=== PATIENT | female | born 1990 | race African-American/Black ===

== ENCOUNTER 2016-04-27 10:42 | Emergency (ER) | payer MEDICAID ==
[2016-04-27] MEDS ORDERED: NS 1,000 ML IV ONE (11:41)
[2016-04-27] MEDS ORDERED: ONDANSETRON 4 MG/2 ML VIAL IVP ONE (11:41)
[2016-04-27] MEDS ORDERED: fentaNYL 100 MCG/2 ML INJ IVP ONE (11:41)
--- NOTE | 2016-04-27 11:41 | EDPHY ---
H & P Smoking Status: Never smoked Time Seen by Provider: 04/27/16 11:04 HPI/ROS: CHIEF COMPLAINT: Abdominal pain, flank pain, urinary frequency HISTORY OF PRESENT ILLNESS: 25-year-old female presents to the emergency department by private vehicle with flank pain and abdominal pain. The patient states around 7:00 p.m. last night she developed some low back discomfort. She developed right lower quadrant abdominal pain last evening as well. She feels that it is sharp and colicky in nature. She has a history of 3 previous kidney stones and she states that this feels very similar although she does not typically have such severe bilateral flank pain with this. No known fevers or chills. She feels extremely nauseous however no vomiting. She has urinary frequency and urgency however no dysuria or hematuria. No diarrhea. Last menstrual period was about 2 months ago. She is on extended control. She is not sexually active and denies . REVIEW OF SYSTEMS: Constitutional: No fever, no chills. Eyes: No double or blurry vision. ENT: No sore throat. Respiratory: No cough, no shortness of breath. Cardiac: No chest pain. Gastrointestinal: Abdominal pain as above. Nausea. No vomiting or diarrhea. Genitourinary: No dysuria. Musculoskeletal: Bilateral flank pain as above. No neck pain. Skin: No rashes. Neurological: No headache. (PrincessGinny miranda) Past Medical/Surgical History: Kidney stones x3 in the last 4 years. Able to pass on her own. (PrincessruthGinny Tavares ) Social History: Single. Works as counselor at [employer] (PrincessruthGinny M) Physical Exam: General Appearance: Alert, no distress. Afebrile and in no apparent distress. Initial blood pressure 151/84 with initial heart rate of 134. Eyes: Pupils equal and round. Extraocular motions are all intact. ENT: Mouth: Mucous membranes moist. Respiratory: No wheezing, rhonchi, or rales, lungs are clear to auscultation. Cardiovascular: Regular rate and rhythm. Heart rate 90s and regular upon my examination. Gastrointestinal: Abdomen is soft and nontender, no masses, no rebound or guarding, bowel sounds normal. Positive CVA tenderness on the right. None on the left. Neurological: Alert and oriented x 3, cranial nerves II through XII grossly intact Skin: Warm and dry, no rashes. Musculoskeletal: Nontender to palpate along the cervical, thoracic or lumbar spine. Neck is supple. Extremities: Full range of motion and no peripheral edema. Psychiatric: Patient is oriented X 3, there is no agitation. (Ginny Mcmanus) Constitutional: Initial Vital Signs Temperature (C) 37 C 04/27/16 10:43 Heart Rate 134 H 04/27/16 10:43 Respiratory Rate 16 04/27/16 10:43 Blood Pressure 151/84 H 04/27/16 10:43 O2 Sat (%) 97 04/27/16 10:43 O2 Delivery Mode Room Air Allergies/Adverse Reactions: acetaminophen [From Percocet] Allergy (Verified 12/18/15 10:57) oxycodone Allergy (Unverified 02/29/16 16:59) oxycodone HCl [From Percocet] Allergy (Verified 12/18/15 10:57) Home Medications: Medication Instructions Recorded Hydroxyzine HCl 12/20/14 Latuda 12/20/14 Bcp 02/29/16 Beclomethasone Qvar 40 [Qvar 40 2 puffs IH DAILY #1 mdi 02/29/16 (*)] Hydroxyzine HCl 02/29/16 Saffers 02/29/16 predniSONE 40 mg PO DAILY #8 tab 02/29/16 Medical Decision Making - Diagnostics Imaging: CT imaging of the abdomen and pelvis with IV contrast reveals normal appearing appendix. No evidence of hydronephrosis or ureteral stone. There is a small, 2 mm stone in the left kidney. Evidence of constipation noted. This was reported to me by Dr. Dobson. (Ginny Mcmanus) ED Course/Re-evaluation: 25-year-old female presents to the emergency department by private vehicle complaining of low back pain, abdominal pain and urinary frequency. Laboratory studies were unremarkable. I recommended CT imaging of the abdomen and pelvis since I was concerned about possible acute appendicitis. The pros and cons were discussed with the patient including radiation exposure and the patient agrees with CT scan. CT imaging of the abdomen and pelvis revealed normal appendix. No evidence of hydronephrosis or acute ureteral stone. The patient was initially given IV fentanyl per pain and then she was given 30 mg of IV Toradol. She was also given IV Zofran and her nausea had completely resolved. The patient requested to be discharged home. She declined any further pain medication. I encouraged her to return if she developed recurring abdominal pain, vomiting, fever, or if she felt worse in any way. She was comfortable with this plan. (Ginny Mcmanus) Differential Diagnosis: Including but not limited to urinary tract infection, pyelonephritis, acute appendicitis, musculoskeletal pain, kidney stone (Ginny Mcmanus) Other Provider: The patient was evaluated and managed by the physician clinical research assistant. I have reviewed this chart and I agree with the findings and plan of care as documented , as indicated by my signature. I am the secondary supervising physician. ( Maty Teixeira) - Data Points Laboratory Results: Laboratory Results 04/27/16 11:00 04/27/16 11:00 Medications Given: Discontinued Medications Fentanyl (Sublimaze) 50 mcg IVP EDNOW ONE Stop: 04/27/16 11:42 Last Admin: 04/27/16 11:51 Dose: 50 mcg Sodium Chloride (Ns) 1,000 mls @ 0 mls/hr IV ONCE ONE PRN Reason: Wide Open Stop: 04/27/16 11:42 Last Admin: 04/27/16 11:51 Dose: 1,000 mls Ketorolac Tromethamine (Toradol) 30 mg IVP EDNOW ONE Stop: 04/27/16 14:04 Last Admin: 04/27/16 14:15 Dose: 30 mg Ondansetron HCl (Zofran) 4 mg IVP EDNOW ONE Stop: 04/27/16 11:42 Last Admin: 04/27/16 11:52 Dose: 4 mg Departure - Departure Disposition: Home, Routine, Self-Care Clinical Impression: Abdominal pain, Urinary frequency, Flank pain Condition: Good Instructions: Flank Pain (ED), Abdominal Pain (ED) Additional Instructions: Abdominal Pain: Return to the Emergency Department immediately for increasing pain, fever, vomiting, or if not completely better in 8-12 hours. Referrals: Elyssa Huntley MD [Medical Doctor] - 1 day, if not improved (Primary care provider transportation security screener)
[2016-04-27 11:42] LABS: % IMMATURE GRANULYOCYTES 0.2 % (0.0-1.1); ABSOLUTE IMMATURE GRANULOCYTES 0.01 10^3/uL (0.00-0.10); ADD DIFF? NO; ADD MORPH? NO; ADD SCAN? NO; ATYPICAL LYMPHOCYTE FLAG 20 (0-99); FRAGMENT RBC FLAG 0 (0-99); HEMATOCRIT 42.1 % (38.0-47.0); HEMOGLOBIN 14.3 g/dL (12.6-16.3); LEFT SHIFT FLG 0 (0-99); LIPEMIA HEMOLYSIS FLAG 90 (0-99); MEAN CELL HEMOGLOBIN 29.8 pg (27.9-34.1); MEAN CELL VOLUME 87.7 fL (81.5-99.8); PLATELET CLUMPS FLAG 0 (0-99); PLATELET COUNT 296 10^3/uL (150-400); RED CELL DISTRIBUTION WIDTH 12.1 % (11.5-15.2)
[2016-04-27 11:53] LABS: COLOR PALE YELLOW; LEUKOCYTE ESTERASE,URINE NEGATIVE (NEGATIVE); NITRITE,URINE NEGATIVE (NEGATIVE)
[2016-04-27 12:02] LABS: ANION GAP 15 mEq/L (8-16); CALCIUM 9.4 mg/dL (8.5-10.4); CARBON DIOXIDE 23 mEq/l (22-31); CHLORIDE 107 mEq/L (97-110); CREATININE 0.6 mg/dL (0.6-1.0); GLOMERULAR FILTRATION RATE > 60; GLUCOSE 89 mg/dL (70-100); POTASSIUM 3.6 mEq/L (3.5-5.2); SODIUM 145 mEq/L (134-144)
[2016-04-27 12:04] LABS: BACTERIA TRACE /hpf (NONE SEEN); MUCUS TRACE /lpf (NONE-1+)
[2016-04-27] MEDS ORDERED: IOPAMIDOL (ISOVUE-300) 50 ML VIAL IV ONE (13:30)
--- NOTE | 2016-04-27 14:00 | CT ---
CT Scan of the Abdomen and Pelvis (With Contrast) 1340 hours History: Right-sided abdominal pain, flank pain, nausea, history of nephrolithiasis. Right lower clarke drant pain. Technique: Axial computed tomographic images of the abdomen and pelvis were obtained with the unevent ful intravenous administration of 90 mL Isovue-300 contrast. No oral or rectal contrast which limits the study. Dose reduction techniques were utilized. CT Abdomen Findings: Lung bases: No pleural effusion. Previous gastric bypass surgery. Liver: Normal. Biliary system: No obstruction. Spleen: Normal. Pancreas: Normal. Adrenals: Normal. Kidneys: No obstruction or solid masses. Nonobstructive 2 mm calculus in the left renal calyx midpole region. Abdominal Aorta: No aneurysm. No bowel obstruction, ascites, or significant retroperitoneal lymphadenopathy. Moderate stool in the colon. CT Pelvis Findings: Appendix appears normal without inflammatory changes. No adnexal masses. No signi ficant adenopathy. Impression: 1. Nonobstructive 2 mm left nephrolithiasis. No right nephrolithiasis or hydronephrosis. 2. No CT evidence of appendicitis, abscess or bowel obstruction. 3. Previous gastric bypass surgery. 4. Mild constipation. Findings and recommendations discussed with Emergency Department physician, Ginny Mcmanus PA-C, at 1 350 hours today. Final report concurs with initial preliminary interpretation. Cosigned: Otoniel Perez M.D.
[2016-04-27] MEDS ORDERED: KETOROLAC 30 MG/1 ML SDV IVP ONE (14:03)
[2016-04-27 14:22] VITALS: BP 123/77; O2SAT 96
[2016-04-27 14:53] VITALS: PULSE 99; RESP 18; TEMP 98.4
== END 2016-04-27 14:49 | disposition home or self-care (01) ==
DX: R10.9 Unspecified abdominal pain (principal); R35.0 Frequency of micturition
CPT/HCPCS: 96374; J1885; J2405; J3010; Q9967

== ENCOUNTER 2016-05-04 10:59 | Emergency (ER) | payer MEDICAID ==
[2016-05-04 11:04] VITALS: TEMP 98.4; O2SAT 98
--- NOTE | 2016-05-04 11:21 | EDPHY ---
H & P Stated Complaint: 1 week pelvic pain/seen last week for same/dx kidney stones Time Seen by Provider: 05/04/16 11:10 HPI/ROS: CHIEF COMPLAINT: Lower abdominal pain since this morning HISTORY OF PRESENT ILLNESS: 25-year-old female history polycystic ovarian syndrome, seen in the ER 7 days ago diagnosed with a 2 mm left kidney stone as she initially presented with flank pain, complaining of new bilateral lower abdominal pain pain since this morningwith intermittent light vaginal bleeding. Positive nausea. No vomiting. Normal bowel movement. No back or flank pain. No urinary abnormality. She is on extended control. Last menstrual period 2 months ago. No history of STD, PID. No dyspareunia history. REVIEW OF SYSTEMS: A ten point review of systems was performed and is negative with the exception of the items mentioned in the HPI PAST MEDICAL & SURGICAL HISTORY: Nephrolithiasis. Polycystic ovarian syndrome. SOCIAL HISTORY: Nonsmoker. 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 Appears to be in no acute distress. 2) HEAD: Normocephalic, atraumatic 3) HEENT: Pupils equal, round, reactive to light bilaterally. Sclera anicteric. Nasopharynx, oropharynx, clear, no lesions. Ears bilaterally with normal tympanic membranes. 4) NECK: Full range of motion, no meningeal signs. 5) LUNGS: Clear auscultation bilaterally, no wheezes, no rhonchi, no retractions. 6) HEART: Regular rate and rhythm, no murmur, no heave, no gallop. 7) ABDOMEN: No guarding, tender to palpation bilateral lower quadrants. negative Albert's, negative peritoneal sign, 8) MUSCULOSKELETAL: Moving all extremities, no focal areas of tenderness, no obvious trauma. No peripheral edema or discoloration. 9) BACK: No CVA tenderness, no midline vertebral tenderness, no fluctuance, no step-off, no obvious trauma, no visual or palpable abnormality. 10) SKIN: No rash, no petechiae. 11) Psychiatric: Patient is oriented X 3, there is no agitation. DIFFERENTIAL DIAGNOSIS: My differential diagnosis includes, but is not limited to, acute appendicitis, acute cholecystitis, bowel obstruction, acute pancreatitis, ovarian torsion, ectopic , gastritis and urinary tract infection. The patient understands that this diagnosis is provisional and can never be 100% accurate. This is a partial list of diagnoses considered. These considerations are based on history, physical exam, past history and reassessment. - Personal History LMP (Females 10-55): Extended Cycle BCP/Inj Current Tetanus/Diphtheria Vaccine: Yes - Medical/Surgical History Hx Asthma: Yes Hx Chronic Respiratory Disease: No Hx Diabetes: No Hx Cardiac Disease: No Hx Renal Disease: No Hx Cirrhosis: No Hx Alcoholism: No Hx HIV/AIDS: No Hx Splenectomy or Spleen Trauma: No Other PMH: PMH: Bipolar, Anxiety, asthma. PSH: VSG, eye lid surgery - Social History Smoking Status: Never smoked Constitutional: Initial Vital Signs Temperature (C) 36.9 C 05/04/16 11:02 Heart Rate 94 05/04/16 11:02 Respiratory Rate 16 05/04/16 11:02 Blood Pressure 114/73 05/04/16 11:02 O2 Sat (%) 98 05/04/16 11:02 O2 Delivery Mode Room Air Allergies/Adverse Reactions: acetaminophen [From Percocet] Allergy (Verified 05/04/16 11:01) oxycodone Allergy (Verified 05/04/16 11:01) oxycodone HCl [From Percocet] Allergy (Verified 05/04/16 11:01) Home Medications: Medication Instructions Recorded Hydroxyzine HCl 12/20/14 Latuda 12/20/14 Bcp 02/29/16 Beclomethasone Qvar 40 [Qvar 40 2 puffs IH DAILY #1 mdi 02/29/16 (*)] Hydroxyzine HCl 02/29/16 Saffers 02/29/16 predniSONE 40 mg PO DAILY #8 tab 02/29/16 Hydrocodone/APAP 5/325 [[place] 1 tab PO Q6 PRN #15 tab 05/04/16 5/325 (RX)] Ondansetron Odt [Zofran Odt] 4 mg PO Q4PRN PRN #10 tab 05/04/16 Medical Decision Making ED Course/Re-evaluation: Re-evaluation most recently at 1:25 p.m.: She is feeling much better. Re- examined her abdomen which is soft no guarding or rebound. I am unable to elicit any pain on exam. Discussed her ultrasound and other diagnostic results. Doubt acute surgical abdominal pathology. I think the patient can be discharged. Usual and customary abdominal precautions instructions provided. She feels comfortable being discharged. Patient states that she is able to tolerate Vicodin without adverse effect - Data Points Laboratory Results: Laboratory Results 05/04/16 11:25 05/04/16 11:25 05/04/16 05/04/16 11:25 11:10 WBC 4.90 10^3/uL (3.80-9.50) RBC 4.86 10^6/uL (4.18-5.33) Hgb 14.4 g/dL (12.6-16.3) Hct 42.6 % (38.0-47.0) MCV 87.7 fL (81.5-99.8) MCH 29.6 pg (27.9-34.1) MCHC 33.8 g/dL (32.4-36.7) RDW 12.2 % (11.5-15.2) Plt Count 293 10^3/uL (150-400) MPV 9.8 fL (8.7-11.7) Neut % (Auto) 63.7 % (39.3-74.2) Lymph % (Auto) 30.2 % (15.0-45.0) Emmet % (Auto) 3.9 L % (4.5-13.0) Eos % (Auto) 1.2 % (0.6-7.6) Baso % (Auto) 0.6 % (0.3-1.7) Nucleat RBC Rel Count 0.0 % (0.0-0.2) Absolute Neuts (auto) 3.12 10^3/uL (1.70-6.50) Absolute Lymphs (auto) 1.48 10^3/uL (1.00-3.00) Absolute Monos (auto) 0.19 L 10^3/uL (0.30-0.80) Absolute Eos (auto) 0.06 10^3/uL (0.03-0.40) Absolute Basos (auto) 0.03 10^3/uL (0.02-0.10) Absolute Nucleated RBC 0.00 10^3/uL (0-0.01) Immature Gran % 0.4 % (0.0-1.1) Immature Gran # 0.02 10^3/uL (0.00-0.10) Sodium 143 mEq/L (134-144) Potassium 3.9 mEq/L (3.5-5.2) Chloride 109 mEq/L (97-110) Carbon Dioxide 24 mEq/l (22-31) Anion Gap 10 mEq/L (8-16) BUN 6 L mg/dL (7-23) Creatinine 0.6 mg/dL (0.6-1.0) Estimated GFR > 60 Glucose 91 mg/dL (70-100) Calcium 9.2 mg/dL (8.5-10.4) Total Bilirubin 0.4 mg/dL (0.1-1.4) Conjugated Bilirubin 0.2 mg/dL (0.0-0.5) Unconjugated Bilirubin 0.2 mg/dL (0.0-1.1) AST 13 L IU/L (14-46) ALT 16 IU/L (9-52) Alkaline Phosphatase 58 IU/L (38-126) Total Protein 7.2 g/dL (6.3-8.2) Albumin 3.8 g/dL (3.5-5.0) Lipase 93.0 IU/L (23-300) Beta HCG, Qual NEGATIVE Urine Color YELLOW Urine Appearance HAZY Urine pH 5.0 (5.0-7.5) Ur Specific [place] 1.026 (1.002-1.030) Urine Protein NEGATIVE (NEGATIVE) Urine Ketones TRACE H (NEGATIVE) Urine Blood NEGATIVE (NEGATIVE) Urine Nitrate NEGATIVE (NEGATIVE) Urine Bilirubin NEGATIVE (NEGATIVE) Urine Urobilinogen 2.0 H EU (0.2-1.0) Ur Leukocyte Esterase NEGATIVE (NEGATIVE) Urine RBC 10-15 H /hpf (0-3) Urine WBC 1-3 /hpf (0-3) Ur Epithelial Cells TRACE /lpf (NONE-1+) Urine Mucus 4+ H /lpf (NONE-1+) Urine Glucose NEGATIVE (NEGATIVE) Medications Given: Discontinued Medications Fentanyl (Sublimaze) 75 mcg IVP EDNOW ONE Stop: 05/04/16 11:34 Last Admin: 01/17/17 11:43 Dose: 75 mcg Ondansetron HCl (Zofran) 4 mg IVP EDNOW ONE Stop: 05/04/16 11:34 Last Admin: 05/04/16 11:43 Dose: 4 mg Departure - Departure Disposition: Home, Routine, Self-Care Clinical Impression: Abdominal pain Qualifiers: Abdominal location: left lower quadrant Qualifier Code: (R10.32) Left lower quadrant pain Condition: Good Instructions: Abdominal Pain (ED) Additional Instructions: Seek immediate medical attention if you develop new or worsening symptoms, if you develop fevers, chills, inability to tolerate oral intake or any other symptoms that concerns you. Referrals: [facility] [Outside] - 1 day without fail Prescriptions: Hydrocodone/APAP 5/325 [[place] 5/325 (RX)] 1 tab PO Q6 PRN #15 tab PRN Reason: Pain, Severe Ondansetron Odt [Zofran Odt] 4 mg PO Q4PRN PRN #10 tab PRN Reason: Nausea
[2016-05-04] MEDS ORDERED: ONDANSETRON 4 MG/2 ML VIAL IVP ONE (11:33)
[2016-05-04] MEDS ORDERED: fentaNYL 100 MCG/2 ML INJ IVP ONE (11:33)
[2016-05-04 11:34] LABS: % IMMATURE GRANULYOCYTES 0.4 % (0.0-1.1); ABSOLUTE IMMATURE GRANULOCYTES 0.02 10^3/uL (0.00-0.10); ADD DIFF? NO; ADD MORPH? NO; ADD SCAN? NO; ATYPICAL LYMPHOCYTE FLAG 50 (0-99); FRAGMENT RBC FLAG 0 (0-99); HEMATOCRIT 42.6 % (38.0-47.0); HEMOGLOBIN 14.4 g/dL (12.6-16.3); LEFT SHIFT FLG 0 (0-99); LIPEMIA HEMOLYSIS FLAG 90 (0-99); MEAN CELL HEMOGLOBIN 29.6 pg (27.9-34.1); MEAN CELL HEMOGLOBIN CONCENTR. 33.8 g/dL (32.4-36.7); MEAN CELL VOLUME 87.7 fL (81.5-99.8); MEAN PLATELET VOLUME 9.8 fL (8.7-11.7); PLATELET CLUMPS FLAG 0 (0-99); PLATELET COUNT 293 10^3/uL (150-400); RED BLOOD CELL COUNT 4.86 10^6/uL (4.18-5.33); RED CELL DISTRIBUTION WIDTH 12.2 % (11.5-15.2)
[2016-05-04 11:50] LABS: ALANINE AMINOTRANSFERASE 16 IU/L (9-52); ALBUMIN 3.8 g/dL (3.5-5.0); ALKALINE PHOSPHATASE 58 IU/L (38-126); ANION GAP 10 mEq/L (8-16); ASPARTATE AMINOTRANSFERASE 13 IU/L (14-46); BILIRUBIN,TOTAL 0.4 mg/dL (0.1-1.4); BILIRUBIN-CONJUGATED 0.2 mg/dL (0.0-0.5); BILIRUBIN-UNCONJUGATED 0.2 mg/dL (0.0-1.1); CALCIUM 9.2 mg/dL (8.5-10.4); CARBON DIOXIDE 24 mEq/l (22-31); CHLORIDE 109 mEq/L (97-110); CREATININE 0.6 mg/dL (0.6-1.0); GLOMERULAR FILTRATION RATE > 60; GLUCOSE 91 mg/dL (70-100); POTASSIUM 3.9 mEq/L (3.5-5.2); SODIUM 143 mEq/L (134-144); TOTAL PROTEIN 7.2 g/dL (6.3-8.2)
[2016-05-04 11:56] LABS: COLOR YELLOW; LEUKOCYTE ESTERASE,URINE NEGATIVE (NEGATIVE); MUCUS 4+ /lpf (NONE-1+); NITRITE,URINE NEGATIVE (NEGATIVE)
[2016-05-04 14:00] VITALS: BP 126/64; PULSE 93; RESP 18
[2016-05-04] MEDS ORDERED: NS 1,000 ML IV ONE (14:00)
--- NOTE | 2016-05-04 14:05 | US ---
Ultrasound abdomen limited. Clinical indication: Abdominal pain, evaluate for appendicitis. TECHNIQUE: Grayscale, color and cine imaging of the right lower quadrant. FINDINGS: The appendix is visualized at 4 mm and compressible. Cecum is unremarkable. Moderate amount of bowel gas is present. IMPRESSION: Normal Results relayed by Dr. Abimael Munguia to Jerry Ballard PA-C today 1257 hours.
--- NOTE | 2016-05-04 14:05 | US ---
Ultrasound pelvic complete. Clinical indication: Pelvic pain. Technique: Transabdominal and transvaginal imaging of the uterus, ovaries and pelvis. FINDINGS: Uterus measures 4.1 x 5.1 x 7.4 cm with a normal appearing 6 mm endometrial stripe. There i s trace free fluid in the cul-de-sac. The right ovary is unremarkable and measures 4.0 x 2.4 x 2.4 cm with a normal resistive index of 0.51 . The left ovary is unremarkable and measures 3.6 x 1.9 x 2.0 cm with a normal resistive index of 0.59. IMPRESSION: Normal study. Critical results relayed by Dr. Munguia to Colton Ballard PA-C today 12:58 PM.
== END 2016-05-04 13:59 | disposition home or self-care (01) ==
DX: R10.30 Lower abdominal pain, unspecified (principal); J45.909 Unspecified asthma, uncomplicated
CPT/HCPCS: 96374; J2405; J3010

== ENCOUNTER 2016-07-21 20:21 | Emergency (ER) | payer MEDICAID ==
[2016-07-21 20:37] VITALS: BP 121/66; PULSE 83; RESP 20; TEMP 98.6; O2SAT 97
[2016-07-21] MEDS ORDERED: diphenhydrAMINE 25 MG CAP PO ONE (21:22)
[2016-07-21] MEDS ORDERED: CETIRIZINE 10 MG TAB PO ONE (21:23)
[2016-07-21] MEDS ORDERED: FAMOTIDINE 20 MG TAB PO ONE (21:23)
--- NOTE | 2016-07-21 21:27 | EDPHY ---
H & P Stated Complaint: rask all over-itchy painfull Time Seen by Provider: 07/21/16 21:00 HPI/ROS: CHIEF COMPLAINT: rash HISTORY OF PRESENT ILLNESS: 25-year-old female presents emergency department complaining of a itchy rash that started 4 days ago. Patient reports this skin around her eyes is swollen and itching and she has tingling in her throat. Patient states she felt like she was getting sick a few days ago from this tingling though it has not progressed it continues just a light tingle. She denies tongue swelling, lip swelling, difficulty breathing. Patient has multiple food allergies to fruits and vegetables, she also has seasonal allergies. Patient sees an can maker and park her. She denies sneezing, itchy eyes or nasal congestion. No cough, no shortness of breath, no wheezing, no chest tightness. She denies new foods, laundry detergents, lotions. REVIEW OF SYSTEMS: A comprehensive 10 point review of systems is otherwise negative aside from elements mentioned in the history of present illness. - Personal History LMP (Females 10-55): 1-7 Days Ago - Medical/Surgical History Hx Asthma: Yes Hx Chronic Respiratory Disease: No Hx Diabetes: No Hx Cardiac Disease: No Hx Renal Disease: No Hx Cirrhosis: No Hx Alcoholism: No Hx HIV/AIDS: No Hx Splenectomy or Spleen Trauma: No Other PMH: PMH: Bipolar, Anxiety, asthma. PSH: VSG, eye lid surgery - Social History Smoking Status: Never smoked - Physical Exam Exam: Physical Exam Gen: Alert and Oriented, NAD HEENT: PERRL, moist mucous membranes, posterior pharynx with erythema, no exudate, uvula midline, no tongue swelling, no lip swelling, periorbital edema, bilateral TMs normal, bilateral nasal turbinates with erythema NECK: no meningismus CV: regular rate and regular rhythm PULM: CTAB, no wheezes ABDOMEN: soft, non tender to palpation, BS present BACK: No CVA tenderness NEURO: Neurologically grossly intact EXTREMITIES: normal appearing SKIN: Red raised blanchable rash to torso, neck PSYCH: answers questions appropriately. Constitutional: Initial Vital Signs Temperature (C) 37 C 07/21/16 20:34 Heart Rate 83 07/21/16 20:34 Respiratory Rate 20 07/21/16 20:34 Blood Pressure 121/66 H 07/21/16 20:34 O2 Sat (%) 97 07/21/16 20:34 Allergies/Adverse Reactions: acetaminophen [From Percocet] Allergy (Verified 07/21/16 20:34) oxycodone Allergy (Verified 07/21/16 20:34) oxycodone HCl [From Percocet] Allergy (Verified 07/21/16 20:34) Home Medications: Medication Instructions Recorded Hydroxyzine HCl 12/20/14 Latuda 12/20/14 Bcp 02/29/16 Beclomethasone Qvar 40 [Qvar 40 2 puffs IH DAILY #1 mdi 02/29/16 (*)] Hydroxyzine HCl 02/29/16 Saffers 02/29/16 predniSONE 40 mg PO DAILY #8 tab 02/29/16 Hydrocodone/APAP 5/325 [[place] 1 tab PO Q6 PRN #15 tab 05/04/16 5/325 (RX)] Ondansetron Odt [Zofran Odt] 4 mg PO Q4PRN PRN #10 tab 05/04/16 Famotidine [Pepcid] 40 mg PO DAILY #5 tablet 07/21/16 Medical Decision Making ED Course/Re-evaluation: Patient with no evidence of anaphylaxis. She is given 50 mg of oral Benadryl and 40 mg of oral Pepcid. I discussed with the patient avoiding prednisone due to her bipolar disorder. Patient will be given a prescription for a 5 day course of Pepcid. She will make an appointment with her can maker tomorrow. She is given return precautions for any worsening symptoms, airway compromise, any other questions or concerns. Differential Diagnosis: The differential diagnosis included but was not limited to angioedema, anaphylaxis, anaphylactoid reaction, urticarial reaction, and other infectious causes for skin rash. Departure - Departure Disposition: Home, Routine, Self-Care Clinical Impression: Rash Allergic reaction Qualifiers: Encounter type: initial encounter Qualified Code(s): T78.40XA - Allergy, unspecified, initial encounter Condition: Good Instructions: General Allergic Reaction (ED), Acute Rash (ED) Additional Instructions: Take 25-50 mg of Benadryl every 8 hours for 3 days, take Zyrtec 10 mg daily, take 40 mg of Pepcid daily for 3 days. Cool compresses or a cool shower or bath will help your symptoms. Follow-up with your can maker this week. Return to the emergency department for any worsening symptoms, tongue swelling, lip swelling, chest tightness, any new symptoms or concerns. Referrals: ROBERTO,DOCTOR [Other] - As per Instructions Prescriptions: Famotidine [Pepcid] 40 mg PO DAILY #5 tablet
== END 2016-07-21 21:45 | disposition home or self-care (01) ==
DX: R21 Rash and other nonspecific skin eruption (principal); T78.40XA Allergy, unspecified, initial encounter; J45.909 Unspecified asthma, uncomplicated